=== PATIENT | female | born 2000 ===

== ENCOUNTER → 2023-11-14 | Outpatient (CLI) | payer OTHER ==
[2023-11-14 16:03] LABS: BASOPHILS ABSOLUTE AUTO 0.04 K/mm3 (0.00-0.23); BASOPHILS PERCENT AUTO 1 % (0-2); EOSINOPHILS ABSOLUTE AUTO 0.04 K/mm3 (0.00-0.68); EOSINOPHILS PERCENT AUTO 1 % (0-6); Hematocrit 39.3 % (33.0-51.0); IMMATURE GRAN ABSOLUTE AUTO 0.03 K/mm3 (0.00-0.10); IMMATURE GRAN PERCENT AUTO 0 % (0-1); LYMPHOCYTES ABSOLUTE AUTO 1.72 K/mm3 (0.84-5.20); LYMPHOCYTES PERCENT AUTO 23 % (21-46); MONOCYTES ABSOLUTE AUTO 0.52 K/mm3 (0.16-1.47); MONOCYTES PERCENT AUTO 7 % (4-13); Mean Corpuscular HGB 30.6 pg (26.0-34.0); Mean Corpuscular HGB Conc 35.6 g/dL (31.5-36.5); Mean Corpuscular Volume 86 fL (80-100); Mean Platelet Volume 9.3 fL (9.1-12.4); NEUTROPHILS PERCENT AUTO 69 % (41-73); Platelet Count 230 K/mm3 (150-400); RDW Coefficient Variation 12.2 % (11.7-14.2); RDW Standard Deviation 38.3 fL (35.1-46.3); Red Blood Cell Count 4.57 M/mm3 (3.80-5.20); White Blood Cell Count 7.45 K/mm3 (4.00-11.30)
[2023-11-14 16:12] LABS: Albumin, Blood 3.7 g/dL (3.4-5.0); Albumin/Globulin Ratio 0.9 (0.8-1.8); Bilirubin, Total 0.5 mg/dL (0.1-1.0); Bun/Creatinine Ratio 9.1 (12.0-20.0); Calcium, Blood 9.6 mg/dL (8.5-10.1); Creatinine, Blood 0.77 mg/dL (0.40-1.00); Potassium, Blood 4.1 mmol/L (3.5-5.5); Total Protein, Blood 7.7 g/dL (6.4-8.2)
== END ==
LOC: LAB SHORT 15:58 → LAB 15:58
PROVIDERS: Family Medicine
DX: R10.9 Unspecified abdominal pain (principal)
CPT/HCPCS: 80053; 84702; 85025; 85651

== ENCOUNTER → 2023-12-08 | Outpatient (CLI) | payer OTHER ==
[2023-12-08 17:44] LABS: Source, Urine Clean Catch
[2023-12-08 18:36] LABS: U Amphetamine Screen Not Detected; U Barbituate Screen Not Detected; U Benzodiazapine Screen Not Detected; U Buprenorphine Screen Not Detected; U Cannabinoids Screen Not Detected; U Cocaine Screen Not Detected; U Methadone Screen Not Detected; U Methamphetamine Screen Not Detected; U Opiates Screen Not Detected; U Oxycodone Screen Not Detected; U Phencyclidine Screen Not Detected
[2023-12-08 19:00] LABS: Mucus Light (0-Heavy); Squamous Epithelial Cells Mod /hpf (Few); Transitional Epithelial Cells Rare /hpf (0-Rare)
[2023-12-08 19:02] LABS: Bacteria Many /hpf; Red Blood Cells, Urine 0-2 /hpf (0-2)
== END ==
LOC: LAB 17:40 → LAB SHORT 17:40
PROVIDERS: Obstetrics & Gynecology
DX: Z34.81 Encounter for supervision of other normal pregnancy, first trimester (principal)
CPT/HCPCS: 81015; 87086

== ENCOUNTER → 2024-06-04 | Outpatient (CLI) | payer OTHER ==
[~2024-06-04] MED LIST: PRENATAL TABLE1 EAC2 PO
== END ==
LOC: LAB SHORT 16:59 → LAB 16:59
DX: O09.891 Supervision of other high risk pregnancies, first trimester (principal)
CPT/HCPCS: 87081; 87150

== ENCOUNTER 2024-06-16 06:09 | Inpatient (IN) | payer OTHER ==
[2024-06-16] VITALS (8 sets, daily range): BP systolic 92–117; BP diastolic 52–73
[~2024-06-16] VITALS: Ht 162.6 cm; Wt 88.6 kg
[2024-06-16] MEDS ORDERED: Carboprost Tromethamine 250 MCG/ML 1ML Amp IM PRN ×2 (06:30→10:25)
[2024-06-16] MEDS ORDERED: Oxytocin 10 Unit / ML Vial IM PRN (06:30)
[2024-06-16] MEDS ORDERED: OXYTOCIN/RINGER'S LACTATE 500 ML IV SCH ×2 (06:30→10:25)
[2024-06-16] MEDS ORDERED: Lactated Ringer's 1,000 ML IV PRN (06:30)
[2024-06-16] MEDS ORDERED: Tranexamic Acid 1,000 MG in NS 100 ML IV SCH (06:30)
[2024-06-16] MEDS ORDERED: Misoprostol 200 MCG Tab XX PRN (06:30)
[2024-06-16] MEDS ORDERED: Ondansetron HCl 2 MG / ML 2ML Vial IV PRN (06:30)
[2024-06-16] MEDS ORDERED: Penicillin G Potassium 5,000,000 UNITS in NS 250 ML IV ONE (06:30)
[2024-06-16] MEDS ORDERED: Acetaminophen 500 MG Tab PO PRN (06:30)
[2024-06-16] MEDS ORDERED: Methylergonovine Maleate 0.2MG / ML 1ML Amp IM PRN ×2 (06:30→10:25)
[2024-06-16] MEDS ORDERED: Misoprostol 200 MCG Tab PR PRN ×2 (06:30→10:25)
[2024-06-16] MEDS ORDERED: PRENATAL TABLE1 EAC2 PO (06:36)
[2024-06-16 06:48] LABS: BASOPHILS ABSOLUTE AUTO 0.03 K/mm3 (0.00-0.23); BASOPHILS PERCENT AUTO 0 % (0-2); EOSINOPHILS ABSOLUTE AUTO 0.04 K/mm3 (0.00-0.68); EOSINOPHILS PERCENT AUTO 0 % (0-6); Hemoglobin 12.4 g/dL (11.5-16.0); IMMATURE GRAN ABSOLUTE AUTO 0.05 K/mm3 (0.00-0.10); IMMATURE GRAN PERCENT AUTO 1 % (0-1); LYMPHOCYTES ABSOLUTE AUTO 2.38 K/mm3 (0.84-5.20); LYMPHOCYTES PERCENT AUTO 27 % (21-46); MONOCYTES ABSOLUTE AUTO 0.62 K/mm3 (0.16-1.47); MONOCYTES PERCENT AUTO 7 % (4-13); Mean Corpuscular HGB 28.2 pg (26.0-34.0); Mean Corpuscular HGB Conc 35.4 g/dL (31.5-36.5); Mean Corpuscular Volume 80 fL (80-100); Mean Platelet Volume 10.3 fL (9.1-12.4); NEUTROPHILS ABSOLUTE AUTO 5.78 K/mm3 (1.96-9.15); NEUTROPHILS PERCENT AUTO 65 % (41-73); Platelet Count 153 K/mm3 (150-400); RDW Coefficient Variation 12.9 % (11.7-14.2); RDW Standard Deviation 36.6 fL (35.1-46.3); Red Blood Cell Count 4.39 M/mm3 (3.80-5.20)
[2024-06-16] MEDS ORDERED: Penicillin G Potassium 5,000,000 UNITS in NS 100 ML IV SCH (06:50)
[2024-06-16] MEDS ORDERED: OXYTOCIN/RINGER'S LACTATE 500 ML IV ONE (06:51)
[2024-06-16] MEDS ORDERED: Lactated Ringer's 1,000 ML IV ONE (06:51)
[2024-06-16] MEDS ORDERED: FentaNYL Citrate 50 MCG/ML 2 ML Injection ONE (06:52)
[2024-06-16] MEDS ORDERED: FentaNYL Citrate 50 MCG/ML 2 ML Injection IV ONE (06:55)
[2024-06-16] MEDS ORDERED: Penicillin G Potassium 2,500,000 UNITS in NS 100 ML IV SCH (08:00)
[2024-06-16] MEDS ORDERED: Ketorolac Tromethamine 30mg Vial IV PRN (10:20)
[2024-06-16] MEDS ORDERED: Lanolin Cream TOP PRN (10:20)
[2024-06-16] MEDS ORDERED: Lactated Ringer's 1,000 ML IV SCH (10:20)
[2024-06-16] MEDS ORDERED: Benzocaine Topical Anesthetic Spray 60GM TOP PRN (10:20)
[2024-06-16] MEDS ORDERED: Rho(D) Immune Globulin 300 MCG / SYR IM SCH (10:20)
[2024-06-16] MEDS ORDERED: Ibuprofen 400 MG Tab PO PRN (10:20)
[2024-06-16] MEDS ORDERED: Docusate Sodium 100 MG Cap PO PRN (10:20)
[2024-06-16] MEDS ORDERED: Acetaminophen 325 MG TABLET PO PRN (10:20)
[2024-06-16] MEDS ORDERED: Witch Hazel/Glycerin PADS TOP PRN (10:20)
[2024-06-16] MEDS ORDERED: Oxytocin 10 Unit / ML Vial IM ONE (10:25)
[2024-06-17 03:46] VITALS: BP 89/51
[2024-06-17 03:47] VITALS: BP 101/56
[2024-06-17] MEDS ORDERED: Prenatal Vit/FE Fumarate/FA 1 Tab PO SCH (09:00)
[2024-06-17 11:25] VITALS: BP 111/63
== END 2024-06-17 18:15 | disposition home or self-care (01) | DRG 768 ==
LOC: OBS 06:09 → BC 06:13 → OBS 06:25 → BC 06:28
PROVIDERS: ADMIT Advanced Practice Midwife
PROC: 10E0XZZ Delivery of Products of Conception, External Approach (ICD-10-PCS; principal; 2024-06-16)
PROC: 0KQM0ZZ Repair Perineum Muscle, Open Approach (ICD-10-PCS; 2024-06-16)
PROC: 0UQMXZZ Repair Vulva, External Approach (ICD-10-PCS; 2024-06-16)
PROC: 0UBGXZZ Excision of Vagina, External Approach (ICD-10-PCS; 2024-06-16)
DX: O24.429 Gestational diabetes mellitus in childbirth, unspecified control (principal); Z37.0 Single live birth; Z3A.38 38 weeks gestation of pregnancy; O99.344 Other mental disorders complicating childbirth; F41.9 Anxiety disorder, unspecified; F32.A Depression, unspecified; O99.214 Obesity complicating childbirth; O99.824 Streptococcus B carrier state complicating childbirth; O70.1 Second degree perineal laceration during delivery; O71.82 Other specified trauma to perineum and vulva; O34.73 Maternal care for abnormality of vulva and perineum, third trimester; N84.2 Polyp of vagina
CPT/HCPCS: 36415; 82947; 85025; 85460; 86850; 86900; 86901; A9270; J1885; J2540; J2590; J2791; J3010